=== PATIENT | female | born 1940 | race Caucasian/White ===

== ENCOUNTER 2017-10-14 12:12 | Inpatient (IN) | payer OTHER, MEDICARE ==
[2017-10-13 19:40] VITALS: BP 105/66; PULSE 68; RESP 18; TEMP 96.4; O2SAT 93
[~2017-10-14 12:12] MED LIST: DEXAMETHASONE SOD PHOS 4 MG/ML VIAL IV ONE; GLYCOPYRROLATE 1 MG/5 ML SYRINGE IV PUSH ONE; LIDOCAINE HCL 1% PF 5 ML SYRINGE OTHER ONE; NEOSTIGMINE 5 MG/5 ML SYRINGE IV PUSH ONE; ONDANSETRON HCL 4 MG/2 ML VIAL IV ONE; PHENYLEPH/NS 1000 MCG/10 ML SYR IV ONE; PROPOFOL 200 MG/20 ML AMP IV ONE; ROCURONIUM INJ 50 MG/5 ML SYRINGE IV PUSH ONE; ePHEDrine/NS 25 MG/5 ML SYRINGE IV ONE
[2017-10-14] MEDS ORDERED: IOHEXOL 350 MG/ML 10 ML VIAL (for RAD DIAG) IVCONTRAST ONE (12:13)
[2017-10-14] MEDS ORDERED: MORPHINE SULFATE 4 MG/ML INJ ONE (12:23)
[2017-10-14] MEDS ORDERED: ONDANSETRON HCL 4 MG/2 ML VIAL ONE (12:24)
[2017-10-14] MEDS: SODIUM CHLOR 0.9% 1000 ML INJ 1,000 ML IV SCH ×2 (12:40→22:40)
[2017-10-14 12:41] LABS: AUTOMATED NEUTROPHIL # 8.3 TH/MM3 (1.8-7.7); BASOPHIL % 0.4 % (0.0-2.0); EOSINOPHIL # 0.1 TH/MM3 (0-0.4); HEMATOCRIT 39.1 % (35.0-46.0); HEMOGLOBIN 13.3 GM/DL (11.6-15.3); LYMPH % 15.9 % (9.0-44.0); LYMPHOCYTE # 1.8 TH/MM3 (1.0-4.8); MEAN CELL VOLUME 91.2 FL (80.0-100.0); MEAN CORPUSCULAR HEMOGLOBIN 31.1 PG (27.0-34.0); MEAN CORPUSCULAR HGB CONC 34.1 % (32.0-36.0); MEAN PLATELET VOLUME 9.9 FL (7.0-11.0); MONO % 9.3 % (0.0-8.0); NEUT % 73.4 % (16.0-70.0); PLATELET COUNT 200 TH/MM3 (150-450); RED BLOOD COUNT 4.29 MIL/MM3 (4.00-5.30); RED CELL DISTRIBUTION WIDTH 14.2 % (11.6-17.2); WHITE BLOOD COUNT 11.3 TH/MM3 (4.0-11.0)
[2017-10-14] MEDS ORDERED: Post-op Orders (for Pharmacy) XX ONE ×2 (12:45→18:00)
[2017-10-14] MEDS ORDERED: MORPHINE SULFATE 2 MG/ML INJ IV PUSH PRN (12:45)
[2017-10-14] MEDS ORDERED: SODIUM CHLORIDE 0.9% FLUSH 10 ML FLUSH IV FLUSH PRN ×2 (12:45→18:00)
[2017-10-14] MEDS ORDERED: NALOXONE HCL 0.4 MG/ML AMP IV PUSH PRN (12:45)
[2017-10-14] MEDS ORDERED: ONDANSETRON HCL 4 MG/2 ML VIAL IV PUSH PRN (12:45)
[2017-10-14 12:54] LABS: PROTHROMBIN TIME - PATIENT 10.1 SEC (9.8-11.6)
[2017-10-14 12:59] VITALS: BP 160/74; PULSE 78; RESP 18; O2SAT 99
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
[2017-10-14] MEDS ORDERED: ACETAMINOPHEN 1000 MG/100 ML 100 ML IV ONE (15:02)
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
[2017-10-14] MEDS ORDERED: ceFAZolin 2 GM PREMIX 50 ML ONE (15:07)
[2017-10-14] MEDS ORDERED: VANCOMYCIN HCL 1000 MG VIAL ONE (15:07)
[2017-10-14] MEDS ORDERED: GENTAMICIN SULFATE 80 MG/2 ML VIAL ONE (15:07)
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
--- NOTE | 2017-10-14 18:01 | RADRPT ---
EXAM DATE/TIME: 10/14/2017 17:29 [facility] COMPARISON: No previous studies available for comparison. INDICATIONS : Open reduction internal fixation with plate placement. MEDICAL HISTORY : None. SURGICAL HISTORY : None. ENCOUNTER: Initial ACUITY: 1 day PAIN SCORE: Non-responsive. LOCATION: Right humerus. FINDINGS: 2 magnified C. arm spot views are centered over a long bone and are labeled right humerus. There is a orthopedic plate with multiple anchoring screws traversing a mid diaphyseal fracture. Good alignment noted. CONCLUSION: Limited images as detailed above. Allen Mari Jr., MD on October 14, 2017 at 17:58 Board Certified Radiologist. This report was verified electronically.
[2017-10-14] MEDS ORDERED: *MEPERIDINE 25 MG INJ VIAL PERIprocedural Use ONLY ONE (18:27)
[2017-10-14] MEDS: LIDOCAINE HCL 5% PATCH T-DERMAL SCH (19:25)
[2017-10-14] MEDS ORDERED: DO NOT ADM ANY ANTICOAGULANT DRUGS PRN (19:30)
[2017-10-14 19:40] VITALS: BP 105/66; PULSE 68; RESP 18; TEMP 96.4; O2SAT 93
[2017-10-14] MEDS: FAMOTIDINE 20 MG TAB PO SCH (20:32)
[2017-10-14] MEDS: MAGNESIUM HYDROXIDE SUSP 30 ML CUP PO SCH (20:32)
[2017-10-14] MEDS: DOCUSATE SODIUM 50 MG/SENNA 8.6 MG TAB PO SCH (20:32)
[2017-10-14] MEDS: REMOVE OLD LIDOCAINE PATCH T-DERMAL SCH (20:32)
[2017-10-14] MEDS ORDERED: SODIUM CHLORIDE 0.9% FLUSH 10 ML FLUSH IV FLUSH SCH ×2 (21:00)
[2017-10-15 00:20] VITALS: BP 113/63; PULSE 69; RESP 17; TEMP 97.5; O2SAT 96
[2017-10-15 04:05] VITALS: BP 97/55; PULSE 71; RESP 17; TEMP 97.8; O2SAT 95
[2017-10-15 05:56] LABS: BASOPHIL % 0.1 % (0.0-2.0); HEMATOCRIT 34.5 % (35.0-46.0); HEMOGLOBIN 11.6 GM/DL (11.6-15.3); LYMPHOCYTE # 0.7 TH/MM3 (1.0-4.8); MEAN CELL VOLUME 92.2 FL (80.0-100.0); MEAN CORPUSCULAR HEMOGLOBIN 30.9 PG (27.0-34.0); MEAN CORPUSCULAR HGB CONC 33.5 % (32.0-36.0); MEAN PLATELET VOLUME 9.6 FL (7.0-11.0); MONO % 9.5 % (0.0-8.0); MONOCYTE # 0.9 TH/MM3 (0-0.9); NEUT % 83.4 % (16.0-70.0); PLATELET COUNT 166 TH/MM3 (150-450); RED BLOOD COUNT 3.74 MIL/MM3 (4.00-5.30); RED CELL DISTRIBUTION WIDTH 13.6 % (11.6-17.2); WHITE BLOOD COUNT 9.6 TH/MM3 (4.0-11.0)
[2017-10-15 06:21] LABS: CALCIUM 8.6 MG/DL (8.5-10.1); CREATININE 0.82 MG/DL (0.50-1.00)
--- NOTE | 2017-10-15 07:31 | PD.ORT.PN ---
Subjective Subjective Remarks Patient resting comfortably this morning. States her pain is relatively well controlled although she is pretty sore. Objective Vitals Vital Signs Date Time Temp Pulse Resp B/P (MAP) Pulse Ox O2 Delivery O2 Flow Rate FiO2 10/15/17 04:05 97.8 71 17 97/55 (69) 95 10/15/17 00:20 97.5 69 17 113/63 (80) 96 10/14/17 19:40 96.4 68 18 105/66 (79) 93 10/14/17 19:00 97.5 73 14 120/59 (79) 94 Nasal Cannula 2 10/14/17 18:45 71 14 115/55 (75) 94 Nasal Cannula 2 10/14/17 18:30 75 14 133/64 (87) 93 Nasal Cannula 2 10/14/17 18:15 83 14 136/58 (84) 93 Nasal Cannula 2 10/14/17 18:00 97.7 92 16 157/76 (103) 94 Nasal Cannula 2 10/14/17 12:59 78 18 160/74 (102) 99 Nasal Cannula 2.00 I/O 10/14/17 10/14/17 10/14/17 10/15/17 10/15/17 10/15/17 07:00 15:00 23:00 07:00 15:00 23:00 Intake Total 1350 ml 480 ml Output Total 600 ml Balance 750 ml 480 ml Intake Oral 480 ml IV Total 1350 ml Output Urine Total 400 ml Estimated Blood Loss 200 ml # Voids 2 # Bowel Movements 0 Result Diagram: 10/15/17 0533 10/15/17 0533 Other Results Laboratory Tests Test 10/14/17 12:15 Prothromb Time International Ratio 1.0 RATIO Prothrombin Time 10.1 SEC (9.8-11.6) Imaging Last 24 hours Impressions Pelvis X-Ray 10/14/171228 Signed Impressions: Service Date/Time: Saturday, October 14, 2017 12:15 - CONCLUSION: No evidence of fracture. Coleman Lara MD Head CT 10/14/171228 Signed Impressions: Service Date/Time: Saturday, October 14, 2017 12:40 - CONCLUSION: No acute intracranial findings. Coleman Lara MD Chest X-Ray 10/14/171228 Signed Impressions: Service Date/Time: Saturday, October 14, 2017 12:15 - CONCLUSION: No acute cardiopulmonary disease identified. Coleman Lara MD Chest CT 10/14/17 1229 Signed Impressions: Service Date/Time: Saturday, October 14, 2017 12:44 - CONCLUSION: 1. No acute findings in the chest. 2. Distal right humerus fracture partially visualized. Coleman Lara MD Cervical Spine CT 10/14/17 1229 Signed Impressions: Service Date/Time: Saturday, October 14, 2017 12:40 - CONCLUSION: No evidence of fracture. Multilevel degenerative findings. Coleman Lara MD Abdomen/Pelvis CT 10/14/17 1229 Signed Impressions: Service Date/Time: Saturday, October 14, 2017 12:44 - CONCLUSION: 1. Mesenteric contusion posterior to the ascending colon in the right hemiabdomen. 2. Nondisplaced right posterior 11th rib fracture also seen at this level. Coleman Lara MD Objective Remarks Awake, alert, no acute distress Right upper extremity: Splint in place with small TORRI drain. Patient demonstrates wrist extension and flexion along with thumbs up, okay sign, and finger cross. Sensation intact throughout. Radial pulses palpable. Assessment & Plan Assessment and Plan 74-year-old female with closed right distal third humeral shaft fracture, postop day #1 status post ORIF right humeral shaft fracture 1. Nonweightbearing right upper extremity in splint. 2. Encouraged patient to work on finger and wrist range of motion. 3. Plan for drain to be removed today. Splint remains intact. 4. No plan for further orthopedic intervention at this time. 5. Patient should follow-up in 2 weeks in my office. Yvette Elam MD Oct 15, 2017 07:31
[2017-10-15] MEDS ORDERED: LACTULOSE SYRUP 20 GM/30 ML CUP PO PRN (07:45)
[2017-10-15] MEDS ORDERED: ACETAMINOPHEN/HYDROcodone 325 MG/5 MG TAB PO PRN (07:45)
[2017-10-15] MEDS ORDERED: ACETAMINOPHEN/HYDROcodone 325 MG/7.5 MG TAB PO PRN (07:45)
[2017-10-15] MEDS ORDERED: diphenhydrAMINE HCL 25 MG CAP PO PRN (07:45)
[2017-10-15] MEDS ORDERED: Post-op Orders (for Pharmacy) XX ONE (07:45)
[2017-10-15] MEDS ORDERED: SODIUM CHLORIDE 0.9% FLUSH 10 ML FLUSH IV FLUSH PRN (07:45)
[2017-10-15 08:00] VITALS: BP 103/56; PULSE 68; RESP 18; TEMP 96.5; O2SAT 93
[2017-10-15] MEDS: SODIUM CHLOR 0.9% 1000 ML INJ 1,000 ML IV SCH (08:40)
[2017-10-15] MEDS: MAGNESIUM HYDROXIDE SUSP 30 ML CUP PO SCH ×2 (09:00→20:24)
--- NOTE | 2017-10-15 09:09 | RADRPT ---
EXAM DATE/TIME: 10/15/2017 08:18 [facility] COMPARISON: CHEST SINGLE AP, October 14, 2017, 12:15. INDICATIONS : Pain in lower right side. MEDICAL HISTORY : None. SURGICAL HISTORY : None. ENCOUNTER: Initial ACUITY: 2 days PAIN SCORE: 5/10 LOCATION: Right lower chest FINDINGS: Lungs are hypoaerated. There is minimal airspace disease in left base. Right lung is clear. Heart and mediastinal structures are stable. CONCLUSION: New left lower lobe airspace disease. Status post ORIF right humerus. Jaylon Whyte MD on October 15, 2017 at 9:04 Board Certified Radiologist. This report was verified electronically.
[2017-10-15] MEDS: LIDOCAINE HCL 5% PATCH T-DERMAL SCH (09:29)
[2017-10-15] MEDS: FAMOTIDINE 20 MG TAB PO SCH ×2 (09:30→20:17)
[2017-10-15] MEDS: DOCUSATE SODIUM 50 MG/SENNA 8.6 MG TAB PO SCH ×2 (09:30→20:17)
[2017-10-15] MEDS: SODIUM CHLORIDE 0.9% FLUSH 10 ML FLUSH IV FLUSH SCH ×2 (09:31→20:13)
[2017-10-15] MEDS: METHOCARBAMOL 500 MG TAB PO SCH ×3 (09:33→23:01)
[2017-10-15] MEDS: ACETAMINOPHEN 1000 MG/100 ML 100 ML IV SCH ×3 (09:34→20:13)
[2017-10-15] MEDS ORDERED: ATOR40TA16 PO (10:04)
[2017-10-15] MEDS ORDERED: CETI10CA3 (10:04)
[2017-10-15] MEDS ORDERED: ALPR0.5T3 PO (10:04)
[2017-10-15] MEDS ORDERED: CITA40TA4 PO (10:04)
[2017-10-15] MEDS ORDERED: FLUT50SP EACH NARE (10:04)
[2017-10-15 12:00] VITALS: BP 107/72; PULSE 70; RESP 18; TEMP 97; O2SAT 98
[2017-10-15] MEDS ORDERED: MORPHINE SULFATE 15 MG TAB PO PRN (12:00)
[2017-10-15] MEDS ORDERED: KETOROLAC TROMETHAMINE 10 MG TAB PO PRN (12:00)
[2017-10-15] MEDS ORDERED: ALPRAZolam 0.5 MG TAB PO PRN (12:15)
[2017-10-15] MEDS: CITALOPRAM HYDROBROMIDE 40 MG TAB PO SCH (12:21)
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
[2017-10-15 16:00] VITALS: BP 98/53; PULSE 68; RESP 18; TEMP 98.7; O2SAT 93
[2017-10-15 20:00] VITALS: BP 112/69; PULSE 65; RESP 20; TEMP 98.7; O2SAT 95
[2017-10-15] MEDS: REMOVE OLD LIDOCAINE PATCH T-DERMAL SCH (20:18)
[2017-10-15] MEDS ORDERED: ATORVASTATIN 40 MG TAB PO SCH (21:00)
[2017-10-16] VITALS: BP 98/57; PULSE 72; RESP 20; TEMP 97.3; O2SAT 94
[2017-10-16] MEDS: ACETAMINOPHEN 1000 MG/100 ML 100 ML IV SCH (01:59)
[2017-10-16 04:00] VITALS: BP 118/55; PULSE 65; RESP 20; TEMP 97.4; O2SAT 94
[2017-10-16] MEDS: METHOCARBAMOL 500 MG TAB PO SCH (06:12)
--- NOTE | 2017-10-16 06:46 | RADRPT ---
EXAM DATE/TIME: 10/16/2017 05:45 [facility] COMPARISON: CHEST SINGLE AP, October 15, 2017, 8:18. INDICATIONS : Short of breath, pain lower right chest, pain right arm MEDICAL HISTORY : right arm fracture SURGICAL HISTORY : None. ENCOUNTER: Subsequent ACUITY: 3 days PAIN SCORE: 8/10 LOCATION: Bilateral chest FINDINGS: A single portable frontal view of the chest shows elevation of the right hemidiaphragm which is uncha nged. Mild right basilar atelectasis. No infiltrates or effusions. Mild cardiomegaly. A scoliotic and degenerative spine. CONCLUSION: Mild right basilar atelectasis. No infiltrates. Allen Mair Jr., MD on October 16, 2017 at 6:43 Board Certified Radiologist. This report was verified electronically.
--- NOTE | 2017-10-16 07:00 | PD.ORT.PN ---
Subjective Subjective Remarks Patient resting comfortably this morning. States her pain is relatively well controlled although she is pretty sore. Objective Vitals Vital Signs Date Time Temp Pulse Resp B/P (MAP) Pulse Ox O2 Delivery O2 Flow Rate FiO2 10/16/17 04:00 97.4 65 20 118/55 (76) 94 10/16/17 00:00 97.3 72 20 98/57 (71) 94 10/15/17 20:00 98.7 65 20 112/69 (83) 95 10/15/17 16:00 98.7 68 18 98/53 (68) 93 10/15/17 13:30 92 Room Air 10/15/17 12:00 97.0 70 18 107/72 (84) 98 10/15/17 08:00 96.5 68 18 103/56 (72) 93 I/O 10/15/17 10/15/17 10/15/17 10/16/17 10/16/17 10/16/17 07:00 15:00 23:00 07:00 15:00 23:00 Intake Total 1501 ml Output Total 35 ml Balance 1466 ml Intake Oral 1080 ml IV Total 421 ml Drainage Total 35 ml # Voids 6 # Bowel Movements 0 Result Diagram: 10/15/17 0533 10/15/17 0533 Imaging Last 24 hours Impressions Pelvis X-Ray 10/14/171228 Signed Impressions: Service Date/Time: Saturday, October 14, 2017 12:15 - CONCLUSION: No evidence of fracture. Coleman Lara MD Head CT 10/14/171228 Signed Impressions: Service Date/Time: Saturday, October 14, 2017 12:40 - CONCLUSION: No acute intracranial findings. Coleman Lara MD Chest X-Ray 10/14/171228 Signed Impressions: Service Date/Time: Saturday, October 14, 2017 12:15 - CONCLUSION: No acute cardiopulmonary disease identified. Coleman Lara MD Chest CT 10/14/171228 Signed Impressions: Service Date/Time: Saturday, October 14, 2017 12:44 - CONCLUSION: 1. No acute findings in the chest. 2. Distal right humerus fracture partially visualized. Coleman Lara MD Cervical Spine CT 10/14/171228 Signed Impressions: Service Date/Time: Saturday, October 14, 2017 12:40 - CONCLUSION: No evidence of fracture. Multilevel degenerative findings. Coleman Lara MD Abdomen/Pelvis CT 10/14/17 1229 Signed Impressions: Service Date/Time: Saturday, October 14, 2017 12:44 - CONCLUSION: 1. Mesenteric contusion posterior to the ascending colon in the right hemiabdomen. 2. Nondisplaced right posterior 11th rib fracture also seen at this level. Coleman Lara MD Objective Remarks Awake, alert, no acute distress Right upper extremity: Splint in place. Patient demonstrates wrist extension and flexion along with thumbs up, okay sign, and finger cross. Sensation intact throughout. Radial pulses palpable. Assessment & Plan Assessment and Plan 74-year-old female with closed right distal third humeral shaft fracture, postop day #2 status post ORIF right humeral shaft fracture 1. Nonweightbearing right upper extremity in splint. 2. Encouraged patient to work on finger and wrist range of motion. 3. No plan for further orthopedic intervention at this time. 5. Patient should follow-up in 2 weeks in my office. Yvette Elam MD Oct 16, 2017 07:00
[2017-10-16 07:57] VITALS: BP 99/54; PULSE 70; RESP 18; TEMP 97.7; O2SAT 94
[2017-10-16] MEDS: SODIUM CHLORIDE 0.9% FLUSH 10 ML FLUSH IV FLUSH SCH (09:00)
[2017-10-16] MEDS: FAMOTIDINE 20 MG TAB PO SCH (10:49)
[2017-10-16] MEDS: CITALOPRAM HYDROBROMIDE 40 MG TAB PO SCH (10:49)
[2017-10-16] MEDS: DOCUSATE SODIUM 50 MG/SENNA 8.6 MG TAB PO SCH (10:49)
[2017-10-16] MEDS: LIDOCAINE HCL 5% PATCH T-DERMAL SCH (10:50)
[2017-10-16] MEDS: MAGNESIUM HYDROXIDE SUSP 30 ML CUP PO SCH (10:50)
[2017-10-16 12:00] VITALS: BP 120/68; PULSE 62; RESP 18; TEMP 97.3; O2SAT 97
[2017-10-16] MEDS ORDERED: LIDO1ADH4 T-DERMAL (12:54)
[2017-10-16] MEDS ORDERED: MAGN30S PO (12:54)
[2017-10-16] MEDS ORDERED: METH500T3 PO (12:54)
[2017-10-16] MEDS ORDERED: PERI PO (12:54)
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
== END 2017-10-16 14:23 | disposition home or self-care (01) | DRG 958 ==
LOC: NEPI 12:12 → NEDA 14:10 → EDBD 14:10 → N06B 19:46
PROVIDERS: ADMIT Surgery; ATTEND Surgery
PROC: 0PSF04Z Reposition Right Humeral Shaft with Internal Fixation Device, Open Approach (ICD-10-PCS; principal; 2017-10-14 15:47)
DX: S42.401A Unspecified fracture of lower end of right humerus, initial encounter for closed fracture (principal); S36.892A Contusion of other intra-abdominal organs, initial encounter; S22.31XA Fracture of one rib, right side, initial encounter for closed fracture; S27.321A Contusion of lung, unilateral, initial encounter; J44.9 Chronic obstructive pulmonary disease, unspecified; E78.5 Hyperlipidemia, unspecified; R91.8 Other nonspecific abnormal finding of lung field; M19.90 Unspecified osteoarthritis, unspecified site; F32.9 Major depressive disorder, single episode, unspecified; F41.9 Anxiety disorder, unspecified; V49.9XXA Car occupant (driver) (passenger) injured in unspecified traffic accident, initial encounter; Y92.410 Unspecified street and highway as the place of occurrence of the external cause
CPT/HCPCS: 29105; 70450; 71045; 71260; 72125; 72170; 73060; 74177; 76000; 80048; 85025; 85610; 85730; 86850; 86900; 86901; 94150; 96361; 96374; 96375; 99291; C1713; G0390; J0131; J0690; J1100; J1580; J2175; J2270; J2370; J2405; J2710; J3010; J3370; J7030; L0150; Q9967